=== PATIENT | female | born 1960 | race Caucasian/White ===

== ENCOUNTER 2022-07-30 10:27 | Outpatient (CLI) | payer OTHER, SELFPAY ==
[2022-07-30 15:30] LABS: Basophils Absolute Auto 0.04 K/uL (0.00-0.30); Basophils Percent Auto 0.5 % (0.0-3.0); Eosinophils Absolute Auto 0.16 K/uL (0.00-0.50); Eosinophils Percent Auto 2.2 % (0.0-7.0); Hematocrit 41.3 % (33.0-51.0); Hemoglobin* 14.2 gm/dL (12.0-16.0); Immature Granulocytes Abs Auto 0.04 K/uL (0.00-0.30); Immature Granulocytes Pct Auto 0.5 %; Lymphocytes Absolute Auto 1.49 K/uL (0.90-2.90); Mean Corpuscular HGB Conc 34 gm/dL (32-36); Mean Corpuscular Hemoglobin 30 pg (26-34); Mean Corpuscular Volume 86 fL (80-100); Monocytes Percent Auto 8.3 % (0.0-11.0); Neutrophils Absolute Auto 5.09 K/uL (1.7-7.0); Neutrophils Percent Auto 68.5 % (42.0-72.0); Platelet Count* 267 K/uL (140-440); RDW Coefficient of Variation % 11.7 % (11.5-15.5); White Blood Count* 7.44 K/uL (4.50-11.00)
[2022-07-30 15:50] LABS: Slide Review Reflex No
[2022-07-30 15:51] LABS: Chloride* 101 mmol/L (96-114); Potassium* 3.9 mmol/L (3.6-5.1); Sodium* 137 mmol/L (135-149)
[2022-07-30 15:53] LABS: Creatinine* 0.7 mg/dL (0.5-1.5); Estimated Glomerular Filt Rate 99 ml/min
[2022-07-30 15:54] LABS: Blood Urea Nitrogen* 19 mg/dL (7-30); Calcium* 9.8 mg/dL (8.4-10.6); Carbon Dioxide* 23 mmol/L (20-32); Glucose* 89 mg/dL (60-115)
[2022-08-05 12:21] LABS: Magnesium* 2.1 mg/dL (1.5-2.6)
== END 2022-07-30 10:28 | disposition home or self-care (01) ==
PROVIDERS: PCP Nurse Practitioner Family; Visit Provider Nurse Practitioner Family
DX: R42 Dizziness and giddiness (principal); E66.9 Obesity, unspecified
CPT/HCPCS: 80048; 83735; 84443; 85025

== ENCOUNTER 2022-12-31 07:57 | Outpatient (CLI) | payer OTHER, SELFPAY | END 2022-12-31 07:58 | disposition home or self-care (01) | PROVIDERS: PCP Nurse Practitioner Family; Visit Provider Nurse Practitioner Family | DX: N39.0 Urinary tract infection, site not specified (principal) | CPT/HCPCS: 81015; 87086; 87186 ==

== ENCOUNTER 2023-05-31 15:40 | Outpatient (CLI) | payer OTHER, SELFPAY ==
--- NOTE | 2023-05-31 16:00 | CRLHL7_ITS ---
For Patients: As a result of the Century Cures Act, medical imaging exams and procedure reports are released immediately into your electronic medical record. You may view this report before your referring provider. If you have questions, please contact your health care provider. INDICATION: Bilateral lower extremity swelling. COMPARISON: None. TECHNIQUE: A compression venous ultrasound exam was performed of both lower extremities using ledesma scale imaging, color Doppler and spectral Doppler analysis. FINDINGS: Right: Sonographic imaging of the right lower extremity demonstrates normal compressibility and color Doppler venous blood flow within the common femoral, femoral, deep femoral, and proximal greater saphenous veins. At a lower level the popliteal, peroneal, and posterior tibial veins also show normal compressibility and color Doppler venous blood flow. Left: Sonographic imaging of the left lower extremity demonstrates normal compressibility and color Doppler venous blood flow within the common femoral, femoral, deep femoral, and proximal greater saphenous veins. At a lower level the popliteal, peroneal, and posterior tibial veins also show normal compressibility and color Doppler venous blood flow. IMPRESSION: Negative for acute DVT in the lower extremities. Dictated by Guera Clark MD @ 05/31/2023 10:49:09 PM (Electronically Signed)
== END 2023-05-31 15:41 | disposition home or self-care (01) ==
LOC: US 15:42
PROVIDERS: PCP Nurse Practitioner Family; Visit Provider Physician Assistant
DX: R22.43 Localized swelling, mass and lump, lower limb, bilateral (principal)
CPT/HCPCS: 93970

== ENCOUNTER 2023-07-08 12:09 | Outpatient (CLI) | payer OTHER, SELFPAY ==
[2023-07-08 16:05] LABS: Erythrocyte SedimentationRate* 12 mm/hr (2-20)
[2023-07-10 01:51] LABS: CRP, High Sensitivity 5.9 mg/L (<=3.0)
== END 2023-07-08 12:10 | disposition home or self-care (01) ==
PROVIDERS: PCP Nurse Practitioner Family; Visit Provider Nurse Practitioner Family
DX: M25.50 Pain in unspecified joint (principal)
CPT/HCPCS: 85651; 86141

== ENCOUNTER 2023-07-28 16:45 | Outpatient (RCR) | payer OTHER, SELFPAY | END 2023-08-16 14:02 | disposition home or self-care (01) | PROVIDERS: PCP Nurse Practitioner Family; Visit Provider Physician Assistant | DX: M70.61 Trochanteric bursitis, right hip (principal); M70.62 Trochanteric bursitis, left hip; M17.0 Bilateral primary osteoarthritis of knee; Z51.89 Encounter for other specified aftercare | CPT/HCPCS: 97110; 97162 ==

== ENCOUNTER 2023-11-03 08:16 | Outpatient (CLI) | payer OTHER, SELFPAY | END 2023-11-03 08:17 | disposition home or self-care (01) | PROVIDERS: PCP Nurse Practitioner Family; Visit Provider Nurse Practitioner Family | DX: E03.9 Hypothyroidism, unspecified (principal); R82.90 Unspecified abnormal findings in urine; I10 Essential (primary) hypertension; Z13.220 Encounter for screening for lipoid disorders | CPT/HCPCS: 80053; 80061; 81015; 84443; 87086; 87186 ==

== ENCOUNTER 2024-01-30 09:45 | Outpatient (CLI) | payer OTHER, SELFPAY ==
--- NOTE | 2024-01-30 10:15 | MM_ITS ---
Patient: SHABANA CHAKRABORTY Facility:?[facility] Patient ID:?[id number] Site Patient ID:?[id number] Site :?[id number] Study:?XRay-Breast Bilateral 3D W/CAD-01/30/2024 10:12:14 AM Ordering Physician:Magalis Final Report: BILATERAL SCREENING MAMMOGRAM WITH COMPUTER-AIDED DETECTION AND TOMOSYNTHESIS TECHNIQUE: CC and MLO views were obtained. These mammographic images have been obtained using full-field digital technique. These mammographic images were interpreted with the benefit of computer-aided detection. Breast tomosynthesis was used in this interpretation. COMPARISON FILM: 07/24/21, 05/29/20, 07/12/18. FINDINGS: There are scattered areas of fibroglandular density. IMPRESSION: There is no radiographic evidence for malignancy. ASSESSMENT: BI-RADS Category 1: Negative RECOMMENDATION: Routine screening mammogram in 1 year. A lay language report of this examination will be provided to the patient. RUPESH AGUILAR M.D. Diagnostic Radiologist [email or web address] JAVED/aureliano D& Transcribed: 1:[address]/Dictated by: Rupesh Aguilar MD @ 01/31/2024 11:46:00 AM Signed by:?Rupesh Aguilar MD @01/31/2024 1:27:24 PM (Electronic Signature)
== END 2024-01-30 09:46 | disposition home or self-care (01) ==
PROVIDERS: PCP Nurse Practitioner Family; Visit Provider Nurse Practitioner Family
DX: Z12.31 Encounter for screening mammogram for malignant neoplasm of breast (principal)
CPT/HCPCS: 77063; 77067

== ENCOUNTER 2024-06-01 10:48 | Outpatient (CLI) | payer OTHER, SELFPAY | END 2024-06-01 10:49 | disposition home or self-care (01) | PROVIDERS: PCP Nurse Practitioner Family; Visit Provider Nurse Practitioner Family | DX: I10 Essential (primary) hypertension (principal) | CPT/HCPCS: 80048 ==

== ENCOUNTER 2024-06-19 15:10 | Outpatient (CLI) | payer OTHER, SELFPAY | END 2024-06-19 15:11 | disposition home or self-care (01) | LOC: NFLDREF 06-20 11:02 | PROVIDERS: PCP Nurse Practitioner Family; Referring Provider Nurse Practitioner Family; Visit Provider Nurse Practitioner Family | DX: Z01.818 Encounter for other preprocedural examination (principal) | CPT/HCPCS: 80048; 85025 ==

== ENCOUNTER 2024-07-03 07:57 | Outpatient (CLI) | payer OTHER, SELFPAY ==
[2024-07-03 13:28] LABS: Basophils Absolute Auto 0.04 K/uL (0.00-0.30); Basophils Percent Auto 0.5 % (0.0-3.0); Eosinophils Absolute Auto 0.24 K/uL (0.00-0.50); Hematocrit 40.7 % (33.0-51.0); Hemoglobin* 13.8 gm/dL (12.0-16.0); Immature Granulocytes Abs Auto 0.04 K/uL (0.00-0.30); Immature Granulocytes Pct Auto 0.5 %; Lymphocytes Percent Auto 18.4 % (20-44); Mean Corpuscular HGB Conc 34 gm/dL (32-36); Mean Corpuscular Hemoglobin 29 pg (26-34); Mean Corpuscular Volume 86 fL (80-100); Monocytes Percent Auto 5.9 % (0.0-11.0); Neutrophils Absolute Auto 5.67 K/uL (1.7-7.0); Neutrophils Percent Auto 71.7 % (42.0-72.0); Platelet Count* 283 K/uL (140-440); RDW Coefficient of Variation % 11.8 % (11.5-15.5); Red Blood Count 4.73 m/uL (4.00-5.20); White Blood Count* 7.92 K/uL (4.50-11.00)
[2024-07-03 13:39] LABS: Slide Review Reflex No
== END 2024-07-03 07:58 | disposition home or self-care (01) ==
PROVIDERS: PCP Nurse Practitioner Family; Visit Provider Nurse Practitioner Family
DX: Z01.818 Encounter for other preprocedural examination (principal)
CPT/HCPCS: 85025

== ENCOUNTER 2024-08-29 15:00 | Outpatient (RCR) | payer OTHER, SELFPAY | END 2024-10-12 14:11 | disposition home or self-care (01) | PROVIDERS: PCP Nurse Practitioner Family; Visit Provider Orthopaedic Surgery Sports Medicine | DX: M25.561 Pain in right knee (principal); Z74.09 Other reduced mobility; R26.9 Unspecified abnormalities of gait and mobility; M62.81 Muscle weakness (generalized); Z51.89 Encounter for other specified aftercare | CPT/HCPCS: 97110; 97140; 97161 ==

== ENCOUNTER 2025-02-21 09:24 | Outpatient (CLI) | payer OTHER, SELFPAY | END 2025-02-21 09:25 | disposition home or self-care (01) | PROVIDERS: PCP Nurse Practitioner Family; Visit Provider Nurse Practitioner Family | DX: E87.6 Hypokalemia (principal); I10 Essential (primary) hypertension; E78.5 Hyperlipidemia, unspecified; E66.9 Obesity, unspecified; E03.9 Hypothyroidism, unspecified; Z13.0 Encounter for screening for diseases of the blood and blood-forming organs and certain disorders involving the immune mechanism | CPT/HCPCS: 80053; 84443; 85025 ==

== ENCOUNTER 2025-02-25 16:00 | Outpatient (CLI) | payer OTHER, SELFPAY | END 2025-02-25 16:01 | disposition home or self-care (01) | PROVIDERS: PCP Nurse Practitioner Family; Visit Provider Nurse Practitioner Family | DX: E87.6 Hypokalemia (principal) | CPT/HCPCS: 84132 ==

== ENCOUNTER 2025-03-05 14:18 | Outpatient (CLI) | payer OTHER, SELFPAY ==
--- NOTE | 2025-03-05 14:45 | CRLHL7_ITS ---
For Patients: As a result of the Century Cures Act, medical imaging exams and procedure reports are released immediately into your electronic medical record. You may view this report before your referring provider. If you have questions, please contact your health care provider. INDICATION: Swelling COMPARISON: 05/31/2023 TECHNIQUE: A compression venous ultrasound exam was performed of the left lower extremity using ledesma-scale imaging, color Doppler and spectral Doppler analysis. FINDINGS: Sonographic imaging of the left lower extremity demonstrates normal compressibility and color Doppler venous blood flow within the common femoral vein, deep femoral vein, and the proximal greater saphenous vein. Within the thigh, the femoral vein is patent and compressible. At a lower level, the popliteal vein also shows normal compressibility and color Doppler venous blood flow. Incomplete visualization of the left peroneal and posterior tibial veins. Limited imaging of the contralateral groin demonstrates a normal spectral waveform and color Doppler venous blood flow within the right common femoral vein. IMPRESSION: No evidence of deep vein thrombosis within the left lower extremity, as visualized. Suboptimal visualization of the left peroneal and posterior tibial veins. Dictated by Jese Ybarra MD @ 03/05/2025 3:51:49 PM (Electronically Signed)
== END 2025-03-05 14:19 | disposition home or self-care (01) ==
LOC: US 14:19
PROVIDERS: PCP Nurse Practitioner Family; Visit Provider Nurse Practitioner Family
DX: M79.89 Other specified soft tissue disorders (principal)
CPT/HCPCS: 93971

== ENCOUNTER 2025-04-15 09:00 | Outpatient (RCR) | payer OTHER, SELFPAY | END 2025-04-15 09:53 | disposition home or self-care (01) | PROVIDERS: PCP Nurse Practitioner Family; Visit Provider Orthopaedic Surgery Sports Medicine | DX: M25.562 Pain in left knee (principal); M62.81 Muscle weakness (generalized); Z51.89 Encounter for other specified aftercare | CPT/HCPCS: 97110; 97112; 97140; 97161 ==

== ENCOUNTER 2025-05-07 07:10 | Outpatient (CLI) | payer OTHER, SELFPAY ==
--- NOTE | 2025-05-07 07:30 | CRLHL7_ITS ---
For Patients: As a result of the Century Cures Act, medical imaging exams and procedure reports are released immediately into your electronic medical record. You may view this report before your referring provider. If you have questions, please contact your health care provider. NM Triple Phase bone Scan: Clinical information: 65-year-old woman. History of left hip pain. Technique: Radiopharmaceutical Tc-99m MDP 27.7 mCi IV Dynamic planer images were taken during the arterial phase, blood pool phase, and 3 hour post-injection delayed phase. Anterior, posterior, and lateral images were obtained at blood pool and 3 hour delayed phase time points. Comparison: None. 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 No abnormality seen on arterial phase images. No abnormality seen on blood pool phase. No abnormality seen on post-injection delayed phase images in the bilateral hips. Degenerative changes in the spine and at bilateral sacroiliac joints. Excreted radiotracer in the bladder. Impression: 1. No explanation on triple phase bone scan to correlate with the patient`s reported left hip pain. Dictated by Isaias Cornejo MD @ 05/09/2025 12:09:50 AM (Electronically Signed)
== END 2025-05-07 07:11 | disposition home or self-care (01) ==
LOC: NM 07:11
PROVIDERS: PCP Nurse Practitioner Family; Visit Provider Orthopaedic Surgery Sports Medicine
DX: M25.552 Pain in left hip (principal)
CPT/HCPCS: 78315; A9503

== ENCOUNTER 2025-05-30 08:45 | Outpatient (CLI) | payer OTHER, SELFPAY | END 2025-05-30 08:46 | disposition home or self-care (01) | LOC: KYNREF 08:46 | PROVIDERS: PCP Nurse Practitioner Family; Visit Provider Nurse Practitioner Family | DX: E78.5 Hyperlipidemia, unspecified (principal) | CPT/HCPCS: 80061 ==

== ENCOUNTER 2025-07-02 09:37 | Outpatient (CLI) | payer OTHER, SELFPAY | END 2025-07-02 09:38 | disposition home or self-care (01) | LOC: NFLDREF 07-18 23:12 | PROVIDERS: PCP Nurse Practitioner Family; Referring Provider Nurse Practitioner Family; Visit Provider Nurse Practitioner Family | DX: I10 Essential (primary) hypertension (principal) | CPT/HCPCS: 81001; 87086 ==

== ENCOUNTER 2025-07-16 18:42 | Outpatient (CLI) | payer OTHER, SELFPAY ==
--- NOTE | 2025-07-16 19:20 | CRLHL7_ITS ---
For Patients: As a result of the Century Cures Act, medical imaging exams and procedure reports are released immediately into your electronic medical record. You may view this report before your referring provider. If you have questions, please contact your health care provider. INDICATION: BILATERAL SCREENING MAMMOGRAM, ASYMPTOMATIC 65 Y/O FEMALE COMPARISON: 01/30/2024, 07/24/2021, 05/29/2020 TECHNIQUE: Digital mammogram in CC and MLO projections including computer-aided detection (CAD) and tomosynthesis. BREAST COMPOSITION: The breasts are almost entirely fatty. FINDINGS: No suspicious findings. ASSESSMENT: BI-RADS 1 Negative RECOMMENDATION: Annual screening mammogram. A lay language report of this examination will be provided to the patient. Dictated by: Jese Ybarra MD @ 07/17/2025 09:28:36 (Electronically Signed)
== END 2025-07-16 18:43 | disposition home or self-care (01) ==
LOC: MAMMO 18:45
PROVIDERS: PCP Nurse Practitioner Family; Visit Provider Nurse Practitioner Family
DX: Z12.31 Encounter for screening mammogram for malignant neoplasm of breast (principal)
CPT/HCPCS: 77063; 77067

== ENCOUNTER 2025-08-01 07:54 | Outpatient (CLI) | payer OTHER, SELFPAY | END 2025-08-01 07:55 | disposition home or self-care (01) | LOC: NFLDREF 08-06 21:02 | PROVIDERS: PCP Nurse Practitioner Family; Referring Provider Nurse Practitioner Family; Visit Provider Nurse Practitioner Family | DX: Z51.81 Encounter for therapeutic drug level monitoring (principal) | CPT/HCPCS: 80048 ==